=== PATIENT | female | born 1945 | race African-American/Black ===

== ENCOUNTER 2020-07-11 19:59 | Inpatient (IN) ==
[2020-07-11] MEDS ORDERED: MAGNESIUM SULF RIDER 4 GM in PREMIX 1 EACH IV PRN (23:40)
[2020-07-11] MEDS ORDERED: MAGNESIUM SULF RIDER 2 GM in PREMIX 1 EACH IV PRN (23:40)
[2020-07-11] MEDS ORDERED: ONDANSETRON 4 MG/2 ML VIAL IV PRN (23:41)
[2020-07-11] MEDS ORDERED: ACETAMINOPHEN 325 MG TABLET PO PRN (23:41)
[2020-07-11] MEDS ORDERED: PROMETHAZINE 25 MG/1 ML VIAL IM PRN (23:41)
[2020-07-11] MEDS ORDERED: GLUCAGON 1 MG VIAL IM PRN (23:41)
[2020-07-11] MEDS ORDERED: DEXTROSE 50% 25 GM/50 ML VIAL IV PRN (23:41)
[2020-07-12 00:37] LABS: Basophils % 0.2 % (0.0-0.8); Eosinophils % 0.8 % (0.00-10.9); Hematocrit 39.5 VOL% (35.7-47.0); Hemoglobin 13.2 GM/DL (12.0-16.0); Immature Granulocytes % 0.2 %; Immature Granulocytes Absolute 0.01 #; Lymphocytes # 1.5 10*3/uL (1.4-4.0); Lymphocytes % 29.1 % (21.3-54.2); Mean Corpuscular HGB Conc 33.4 GM/DL (32-36); Mean Platelet Volume 9.1 FL (9.6-12.0); Monocytes % 9.3 % (1.7-12.7); Neutrophils % 60.4 % (38.7-73.9); Platelet Count 276 T/CUMM (130-400); Red Cell Distribution Width 13.5 % (9.3-17.3); White Blood Count 5.2 T/CUMM (4-12)
[2020-07-12 01:31] LABS: Albumin 2.9 G/DL (3.4-5.0); Alkaline Phosphatase 103 U/L (45-117); Aspartate Amino Transferase 24 U/L (0-37); Blood Urea Nitrogen 6 MG/DL (7-18); Calcium 8.5 MG/DL (8.5-10.1); Carbon Dioxide 24 MMOL/L (21-32); Glucose 104 MG/DL (74-106); Osmolality,Calculated 257.8 MOS/KG (273-304); Potassium 2.6 MMOL/L (3.5-5.1); Sodium 130 MMOL/L (136-145); Total Protein 7.3 G/DL (6.4-8.3)
[2020-07-12 01:35] LABS: Estimated Glom Filtration Rate 0 ML/MIN; Troponin I 0.349 NG/ML (0.00-0.045)
[2020-07-12 01:48] LABS: Alanine Aminotransferase 9 U/L (13-56)
[2020-07-12] MEDS: SODIUM CHLORIDE 0.9% 1,000 ML IV SCH ×3 (02:01→17:39)
[2020-07-12 02:52] LABS: Bilirubin,Urine Negative (Negative); Blood, Urine Negative (Negative); Glucose,Urine (UA) Negative (Negative); Ketones,Urine 5 mg/dL (Negative); Nitrite,Urine Negative (Negative); Protein,Urine Negative; RBC,Urine 1 /HPF (0-4); Squamous Epithelial Cell,Urine Occasional /HPF (0-10); Urine Appearance CLEAR (Clear); Urine Color Straw (Yellow); Urine Specific Gravity 1.004 (1.001-1.035); Urine Urobilinogen < 2.0 EU/DL (0.2-1.0); WBC,Urine <1 /HPF (0-6)
[2020-07-12 03:00] LABS: Basophils % 0.4 % (0.0-0.8); Eosinophils # 0.1 10*3/uL (0.0-0.87); Eosinophils % 1.2 % (0.00-10.9); Hematocrit 36.6 VOL% (35.7-47.0); Hemoglobin 12.2 GM/DL (12.0-16.0); Immature Granulocytes % 0.4 %; Immature Granulocytes Absolute 0.02 #; Lymphocytes # 1.5 10*3/uL (1.4-4.0); Lymphocytes % 29.3 % (21.3-54.2); Mean Corpuscular HGB Conc 33.3 GM/DL (32-36); Mean Platelet Volume 8.8 FL (9.6-12.0); Monocytes % 9.2 % (1.7-12.7); Neutrophils % 59.5 % (38.7-73.9); Platelet Count 297 T/CUMM (130-400); Red Blood Count 4.41 MC/CUMM (3.8-5.5); Red Cell Distribution Width 13.6 % (9.3-17.3); White Blood Count 5.1 T/CUMM (4-12)
[2020-07-12] MEDS ORDERED: cefTRIAXone 2,000 MG in SODIUM CHLORIDE 0.9% 100 ML IV SCH (03:30)
[2020-07-12 03:38] LABS: Calcium 8.5 MG/DL (8.5-10.1)
[2020-07-12] MEDS: POTASSIUM CHLORIDE 20 MEQ TABLET PO PRN ×4 (03:49→10:17)
[2020-07-12 05:26] LABS: Potassium 2.3 MMOL/L (3.5-5.1)
[2020-07-12] MEDS: PANTOPRAZOLE 40 MG VIAL IV SCH (08:04)
[2020-07-12] MEDS: INSULIN LISPRO 100 UNIT/ML SUBCUT SCH ×4 (08:11→20:24)
[2020-07-12 09:03] LABS: Troponin I 0.421 NG/ML (0.00-0.045)
[2020-07-12] MEDS: METOPROLOL TARTRATE 25 MG TABLET PO SCH ×2 (10:14→20:28)
[2020-07-12] MEDS: ASCORBIC ACID 500 MG TABLET PO SCH ×2 (11:19→20:27)
[2020-07-12] MEDS: APIXABAN 5 MG TABLET PO SCH (20:28)
[2020-07-12] MEDS ORDERED: ENOXAPARIN 40 MG/0.4 ML SYRINGE SUBCUT SCH (21:00)
[2020-07-13 02:53] LABS: Basophils % 0.3 % (0.0-0.8); Eosinophils # 0.1 10*3/uL (0.0-0.87); Eosinophils % 2.2 % (0.00-10.9); Hematocrit 31.8 VOL% (35.7-47.0); Hemoglobin 10.7 GM/DL (12.0-16.0); Immature Granulocytes % 0.5 %; Immature Granulocytes Absolute 0.02 #; Lymphocytes # 1.2 10*3/uL (1.4-4.0); Lymphocytes % 33.2 % (21.3-54.2); Mean Corpuscular HGB Conc 33.6 GM/DL (32-36); Mean Corpuscular Volume 83.7 FL (87-102); Mean Platelet Volume 8.6 FL (9.6-12.0); Monocytes % 9.6 % (1.7-12.7); Neutrophils % 54.2 % (38.7-73.9); Platelet Count 268 T/CUMM (130-400); Red Cell Distribution Width 13.8 % (9.3-17.3); White Blood Count 3.7 T/CUMM (4-12)
[2020-07-13 03:10] LABS: Calcium 8.4 MG/DL (8.5-10.1); Ferritin 321.8 ng/ml (8-252); Potassium 3.1 MMOL/L (3.5-5.1)
[2020-07-13 04:02] VITALS: BP 158/70
[2020-07-13] MEDS: POTASSIUM CHLORIDE 20 MEQ TABLET PO PRN ×4 (04:56→11:33)
[2020-07-13] MEDS: SODIUM CHLORIDE 0.9% 1,000 ML IV SCH ×2 (05:00→08:55)
[2020-07-13] MEDS: INSULIN LISPRO 100 UNIT/ML SUBCUT SCH ×2 (07:30→11:34)
[2020-07-13] MEDS: ASCORBIC ACID 500 MG TABLET PO SCH (08:00)
[2020-07-13] MEDS: APIXABAN 5 MG TABLET PO SCH (08:00)
[2020-07-13] MEDS: PANTOPRAZOLE 40 MG VIAL IV SCH (08:00)
[2020-07-13] MEDS: METOPROLOL TARTRATE 25 MG TABLET PO SCH (08:00)
== END 2020-07-13 15:07 | disposition home or self-care (01) | DRG 309 ==
LOC: N.TELEN 21:18 → N.CC 07-12 13:29
PROVIDERS: ADMIT Internal Medicine; ATTEND Internal Medicine